=== PATIENT | male | born 2000 | race Caucasian/White ===

== ENCOUNTER 2023-06-07 10:29 | Outpatient (CLI) | payer OTHER, MEDICAID, SELFPAY | END 2023-06-07 10:30 | disposition home or self-care (01) | LOC: NFLDREF 06-11 10:49 | PROVIDERS: PCP Family Medicine; Referring Provider Family Medicine; Visit Provider Family Medicine | DX: E78.00 Pure hypercholesterolemia, unspecified (principal); E66.9 Obesity, unspecified; Z83.2 Family history of diseases of the blood and blood-forming organs and certain disorders involving the immune mechanism; Z13.228 Encounter for screening for other metabolic disorders; Z13.29 Encounter for screening for other suspected endocrine disorder | CPT/HCPCS: 80053; 80061; 81241; 84443 ==

== ENCOUNTER 2025-04-09 09:06 | Outpatient (CLI) | payer BC, MEDICAID, SELFPAY | END 2025-04-09 09:07 | disposition home or self-care (01) | LOC: LKVREF 09:08 | PROVIDERS: PCP Family Medicine; Visit Provider Family Medicine | DX: Z00.00 Encounter for general adult medical examination without abnormal findings (principal); E66.9 Obesity, unspecified; Z68.41 Body mass index [BMI] 40.0-44.9, adult | CPT/HCPCS: 80053; 80061 ==